=== PATIENT | female | born 1970 | race Caucasian/White ===

== ENCOUNTER 2019-03-08 18:03 | Emergency (ER) | payer BC ==
[2019-03-08] MEDS ORDERED: Sodium Chloride 0.9% 10 ML Syringe FLUSH PRN (18:23)
[2019-03-08] MEDS ORDERED: GI Cocktail Oral Solution 30 ML PO ONE (18:24)
[2019-03-08] MEDS ORDERED: diphenhydrAMINE 50 MG/ML SDV IVPUSH ONE (18:38)
[2019-03-08] MEDS ORDERED: Pantoprazole 40 MG Vial IVPUSH ONE (18:38)
[2019-03-08] MEDS ORDERED: Morphine 2 MG/ML Syringe IVPUSH ONE (18:38)
--- NOTE | 2019-03-08 19:03 | EDM.PDOC ---
ED HPI GENERAL MEDICAL PROBLEM - General Chief Complaint: Abdominal Pain Stated Complaint: abdominal pain Time Seen by Provider: 03/08/19 18:18 Source of Information: Reports: Patient History Limitations: Reports: No Limitations - History of Present Illness INITIAL COMMENTS - FREE TEXT/NARRATIVE: Patient arrives in the ER with complaints of abdominal pain and nausea since 12 today after eating lunch. 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 Has had history of ulcers, GERD, anxiety, depression. Denies history of UT, stroke. No family history of early from either. Denies fever, chills, chest pain, sob, no blood in urine or stool. Does endorse urinary frequency. No back pain. Surgical history includes appendectomy, cholecystectomy, and total hysterectomy. Last pouch dilitation was 2 weeks ago and states she is due for another. Onset: Today, Sudden Duration: Intermittent Quality: Reports: Sharp, Stabbing Severity: Moderate Improves with: Reports: None Worsens with: Reports: Movement Associated Symptoms: Reports: No Other Symptoms Middle Epigastric Pain Score (Numeric/FACES): 9 - Related Data Allergies Allergy/AdvReac Type Severity Reaction Status Date / Time fentanyl Allergy Hives Verified 03/08/19 18:25 Penicillins Allergy Cannot Verified 03/08/19 18:25 Remember prednisone Allergy Other Verified 03/08/19 18:25 Home Meds: Home Meds Carisoprodol [Soma] 250 mg PO TID PRN 03/08/19 [History] ClonazePAM [KlonoPIN] 0.5 mg PO BID PRN 03/08/19 [History] FLUoxetine HCl [Prozac] 60 mg PO DAILY 03/08/19 [History] Lactulose 10 gm PO BID PRN 03/08/19 [History] Misoprostol [Cytotec] 400 mcg PO BID 03/08/19 [History] Omeprazole Magnesium [Prilosec Otc] 40 mg PO BID 03/08/19 [History] Phenazopyridine [Pyridium] 100 mg PO Q4H PRN 03/08/19 [History] Propranolol [Inderal] 20 mg PO BID PRN 03/08/19 [History] SUMAtriptan [Sumatriptan] 20 mg NS DAILY PRN 03/08/19 [History] Sucralfate [Carafate] 1 gm PO QID 03/08/19 [History] buPROPion [Wellbutrin] 100 mg PO BID 03/08/19 [History] busPIRone [Buspar] 5 mg PO TID PRN 03/08/19 [History] lamoTRIgine [Lamictal XR] 300 mg PO DAILY 03/08/19 [History] traZODone HCl [Trazodone HCl] 100 mg PO BEDTIME 03/08/19 [History] ED ROS GENERAL - Review of Systems Review Of Systems: See Below Constitutional: Reports: No Symptoms HEENT: Reports: No Symptoms Respiratory: Reports: No Symptoms Cardiovascular: Reports: No Symptoms Endocrine: Reports: No Symptoms GI/Abdominal: Reports: Abdominal Pain, Nausea : Reports: Frequency Musculoskeletal: Reports: No Symptoms Skin: Reports: No Symptoms Neurological: Reports: No Symptoms Psychiatric: Reports: No Symptoms Hematologic/Lymphatic: Reports: No Symptoms Immunologic: Reports: No Symptoms ED EXAM, GI/ABD - Physical Exam Exam: See Below Exam Limited By: No Limitations General Appearance: Alert, WD/WN, No Apparent Distress Eyes: Bilateral: Normal Appearance, EOMI Ears: Normal TMs, Other (tubes bilaterally and are in correct position) Nose: Normal Inspection, Normal Mucosa, No Blood Throat/Mouth: Normal Inspection, Normal Lips, Normal Teeth, Normal Gums, Normal Oropharynx, Normal Voice, No Airway Compromise Head: Atraumatic, Normocephalic Neck: Normal Inspection, Supple, Non-Tender, Full Range of Motion Respiratory/Chest: No Respiratory Distress, Lungs Clear, Normal Breath Sounds, No Accessory Muscle Use, Chest Non-Tender Cardiovascular: Normal Peripheral Pulses, Regular Rate, Rhythm, No Edema, No Gallop, No JVD, No Murmur, No Rub GI/Abdominal Exam: Normal Bowel Sounds, No Organomegaly, No Mass, Tender. No: Distended Back Exam: Normal Inspection, Full Range of Motion, NT Extremities: Normal Inspection, Normal Range of Motion, Non-Tender, Normal Capillary Refill, No Pedal Edema Neurological: Alert, Oriented, CN II-XII Intact, Normal Cognition, Normal Gait, Normal Reflexes, No Motor/Sensory Deficits Psychiatric: Normal Affect, Normal Mood Skin Exam: Warm, Dry, Intact, Normal Color, No Rash Lymphatic: No Adenopathy Course - Vital Signs Last Recorded V/S: Last Vital Signs Temp 37.2 C 03/08/19 21:08 Pulse 99 05/05/19 21:08 Resp 16 03/08/19 21:08 BP 108/61 03/08/19 21:08 Pulse Ox 95 03/08/19 21:08 - Orders/Labs/Meds Labs: Laboratory Tests 03/08/19 03/08/19 03/08/19 Range/Units 18:28 18:47 18:47 WBC 9.0 (4.0-10.0) x10^3/uL RBC 3.50 L (4.00-5.50) x10^6/uL Hgb 11.1 L (12.0-16.0) g/dL Hct 33.4 (33.0-47.0) % MCV 95.4 H (78.0-93.0) fL MCH 31.7 (26.0-32.0) pg MCHC 33.2 (32.0-36.0) g/dL RDW Coeff of [place]cad[place] 13.6 (10.0-15.0) % Plt Count 368 (130-400) x10^3/uL Neut % (Auto) 59.6 (50.0-80.0) % Lymph % (Auto) 33.7 (25.0-50.0) % [place] % (Auto) 5.4 (2.0-11.0) % Eos % (Auto) 0.9 (0.0-4.0) % Baso % (Auto) 0.4 (0.2-1.2) % PT 9.0 L (10.0-12.8) SEC INR 0.8 L (2.0-3.5) Sodium (136-145) mmol/L Potassium (3.5-5.1) mmol/L Chloride (98-107) mmol/L Carbon Dioxide (21-32) mmol/L Anion Gap (10-20) mmol/L BUN (7-18) mg/dL Creatinine (0.55-1.02) mg/dL Est Cr Clr Drug Dosing mL/min Estimated GFR (MDRD) Glucose (74-106) mg/dL Calcium (8.5-10.1) mg/dL Corrected Calcium (8.5-10.1) mg/dL Total Bilirubin (0.2-1.0) mg/dL AST (15-37) U/L ALT (14-59) U/L Alkaline Phosphatase (46-116) U/L Creatine Kinase (26-192) U/L Troponin I (<=0.056) ng/mL C-Reactive Protein (<=0.9) mg/dL Total Protein (6.4-8.2) g/dL Albumin (3.4-5.0) g/dL Globulin Albumin/Globulin Ratio TSH, Ultra Sensitive (0.358-3.74) uIU/mL Urine Color Yellow (YELLOW) Urine Appearance Clear (CLEAR) Urine pH 6.0 (5.0-8.0) Ur Specific [place] 1.010 Urine Protein Negative (NEGATIVE) mg/dL Urine Glucose (UA) Negative (NEGATIVE) mg/dL Urine Ketones Negative (NEGATIVE) mg/dL Urine Occult Blood Negative (NEGATIVE) Urine Nitrite Negative (NEGATIVE) Urine Bilirubin Negative (NEGATIVE) Urine Urobilinogen 0.2 (0.2) EU/dL Ur Leukocyte Esterase Negative (NEGATIVE) Urine RBC 0-5 (NOT SEEN) /HPF Urine WBC 0-5 (NOT SEEN) /HPF Ur Squamous Epith Cells Few H (NEGATIVE) /HPF Urine Bacteria Not seen (NEGATIVE) /HPF Urine Mucus Not seen (NEGATIVE) /LPF 03/08/19 Range/Units 18:47 WBC (4.0-10.0) x10^3/uL RBC (4.00-5.50) x10^6/uL Hgb (12.0-16.0) g/dL Hct (33.0-47.0) % MCV (78.0-93.0) fL MCH (26.0-32.0) pg MCHC (32.0-36.0) g/dL RDW Coeff of Arcadio (10.0-15.0) % Plt Count (130-400) x10^3/uL Neut % (Auto) (50.0-80.0) % Lymph % (Auto) (25.0-50.0) % [place] % (Auto) (2.0-11.0) % Eos % (Auto) (0.0-4.0) % Baso % (Auto) (0.2-1.2) % PT (10.0-12.8) SEC INR (2.0-3.5) Sodium 140 (136-145) mmol/L Potassium 4.2 (3.5-5.1) mmol/L Chloride 106 (98-107) mmol/L Carbon Dioxide 26 (21-32) mmol/L Anion Gap 12.2 (10-20) mmol/L BUN 11 (7-18) mg/dL Creatinine 0.7 (0.55-1.02) mg/dL Est Cr Clr Drug Dosing 85.79 mL/min Estimated GFR (MDRD) > 60 Glucose 93 (74-106) mg/dL Calcium 8.0 L (8.5-10.1) mg/dL Corrected Calcium 9.04 (8.5-10.1) mg/dL Total Bilirubin 0.2 (0.2-1.0) mg/dL AST 18 (15-37) U/L ALT 23 (14-59) U/L Alkaline Phosphatase 64 (46-116) U/L Creatine Kinase 58 (26-192) U/L Troponin I < 0.017 (<=0.056) ng/mL C-Reactive Protein 0.5 (<=0.9) mg/dL Total Protein 5.8 L (6.4-8.2) g/dL Albumin 2.7 L (3.4-5.0) g/dL Globulin 3.1 Albumin/Globulin Ratio 0.87 TSH, Ultra Sensitive 2.808 (0.358-3.74) uIU/mL Urine Color (YELLOW) Urine Appearance (CLEAR) Urine pH (5.0-8.0) Ur Specific [place] Urine Protein (NEGATIVE) mg/dL Urine Glucose (UA) (NEGATIVE) mg/dL Urine Ketones (NEGATIVE) mg/dL Urine Occult Blood (NEGATIVE) Urine Nitrite (NEGATIVE) Urine Bilirubin (NEGATIVE) Urine Urobilinogen (0.2) EU/dL Ur Leukocyte Esterase (NEGATIVE) Urine RBC (NOT SEEN) /HPF Urine WBC (NOT SEEN) /HPF Ur Squamous Epith Cells (NEGATIVE) /HPF Urine Bacteria (NEGATIVE) /HPF Urine Mucus (NEGATIVE) /LPF Meds: Medications Discontinued Medications Generic Name Dose Route Start Last Admin Trade Name Freq PRN Reason Stop Dose Admin Al Hydroxide/Mg Hydroxide 30 ml 03/08/19 18:24 03/08/19 18:45 Gi Cocktail PO 03/08/19 18:25 30 ml ONETIME ONE Administration Diphenhydramine HCl 25 mg 03/08/19 18:38 03/08/19 18:58 Benadryl IVPUSH 03/08/19 18:39 25 mg ONETIME ONE Administration Hydromorphone HCl 1 mg 03/08/19 20:09 03/08/19 20:24 Dilaudid IVPUSH 03/08/19 20:10 1 mg ONETIME ONE Administration Lactated Ringer's 1,000 mls @ 999 mls/hr 03/08/19 20:09 03/08/19 20:26 Ringers, Lactated IV 03/08/19 21:09 999 mls/hr ONETIME ONE Administration Piperacillin Sod/Tazobactam 100 mls @ 200 mls/hr 03/08/19 20:10 03/08/19 20: 25 Sod 3.375 gm/ Sodium Chloride IV 03/08/19 20:39 200 mls/hr STAT ONE Administration Iopamidol 100 ml 03/08/19 19:22 03/08/19 19:25 Isovue-300 (61%) IVPUSH 03/08/19 19:23 100 ml ONETIME ONE Administration Morphine Sulfate 2 mg 03/08/19 18:38 03/08/19 19:00 Morphine IVPUSH 03/08/19 18:39 2 mg ONETIME ONE Administration Morphine Sulfate 4 mg 03/08/19 19:33 03/08/19 19:40 Morphine IVPUSH 03/08/19 19:34 4 mg ONETIME ONE Administration Ondansetron HCl 4 mg 03/08/19 19:44 03/08/19 19:52 Zofran IVPUSH 03/08/19 19:45 4 mg ONETIME ONE Administration Pantoprazole Sodium 40 mg 03/08/19 18:38 03/08/19 18:56 Protonix Iv IVPUSH 03/08/19 18:39 40 mg ONETIME ONE Administration Sodium Chloride 10 ml 03/08/19 18:23 Saline Flush FLUSH ASDIRECTED PRN Keep Vein Open - Radiology Interpretation Free Text/Narrative:: CT shows small bowel obstruction Departure - Departure Time of Disposition: 21:40 Disposition: DC/Tfer to Acute Hospital 02 Condition: Fair Clinical Impression: Small bowel obstruction - Discharge Information *PRESCRIPTION DRUG MONITORING PROGRAM REVIEWED*: Yes *COPY OF PRESCRIPTION DRUG MONITORING REPORT IN PATIENT JOE: Not Applicable Referrals: PCP,Not In Area [Primary Care Provider] - Forms: ED Department Discharge, Interfacility Transfer [facility] ED Communication - ED Communication Date/Time Date: 03/08/19 Time Called: 20:15 - Discussed Case With (1) Discussed Case With (1): Admitting Provider (Dr. Branch at [facility] was contacted and given report. Patient accepted. Await room number for transfer.)
[2019-03-08 19:22] LABS: CHLORIDE,CL 106 mmol/L (98-107); SODIUM,NA 140 mmol/L (136-145)
[2019-03-08] MEDS ORDERED: Iopamidol 612 MG/ML 100 ML Bottle IVPUSH ONE (19:22)
[2019-03-08 19:24] LABS: ANION GAP 12.2 mmol/L (10-20)
[2019-03-08] MEDS ORDERED: Morphine 4 MG/ML Syringe IVPUSH ONE (19:33)
[2019-03-08] MEDS ORDERED: Ondansetron 4 MG/2 ML SDV IVPUSH ONE (19:44)
--- NOTE | 2019-03-08 19:58 | CT ---
[id number] CT/CT Chest Abdomen Pelvis W IV EXAM: CHEST ABDOMEN AND PELVIS CT WITH CONTRAST INDICATION: Chest pain. COMPARISON: None. DISCUSSION: Previous gastric bypass. There are mild to moderately dilated fluid-filled small bowel loops in the left abdomen and right lower quadrant with multiple apparent transition points. The stomach, right colon and small bowel loops are origin is somewhat atypical fashion. These changes are present possibility of an internal hernia. There is minor edema within the right lower quadrant mesentery. No pneumatosis. The sigmoid colon, gallbladder and uterus are surgically absent. There is a probable hormonal ring within the vaginal cuff. Prominent colonic stool volume. Mild ectasia of the anterior and extrahepatic bile ducts likely relating to the patient's prior cholecystectomy. 10 mm right renal cyst. The pancreas, spleen, adrenal glands, and left kidney are normal in appearance. No free air free fluid. The osseous structures are unremarkable. IMPRESSION: 1. Small bowel obstruction with mild to moderate small bowel dilation. Constellation of findings raise the possibility of internal hernia and potential closed loop obstruction. Onel Saini MD 03/08/191955 Thank you for allowing us to participate in the care of your patient.
[2019-03-08] MEDS ORDERED: Lactated Ringers 1,000 ML IV ONE (20:09)
[2019-03-08] MEDS ORDERED: HYDROmorphone 1 MG/ML Syringe IVPUSH ONE (20:09)
[2019-03-08] MEDS ORDERED: Piperacillin/Tazobactam 3.375 GM in Sodium Chloride 0.9% 100 ML IV ONE (20:10)
== END 2019-03-08 21:40 | disposition short-term general hospital (02) ==
LOC: VM.ED 18:03
DX: K56.609 Unspecified intestinal obstruction, unspecified as to partial versus complete obstruction (principal); Z79.899 Other long term (current) drug therapy; Z88.0 Allergy status to penicillin; Z88.8 Allergy status to other drugs, medicaments and biological substances
CPT/HCPCS: 74177; 80053; 81001; 82550; 84443; 84484; 85025; 85610; 86140; 93005; 96361; 96365; 96375; 96376; 99285; A9270; C9113; J1170; J1200; J2270; J2405; J2543; J7050; J7120; Q9967

== ENCOUNTER 2019-03-26 21:37 | Emergency (ER) | payer BC ==
[2019-03-26] MEDS ORDERED: Sodium Chloride 0.9% 10 ML Syringe FLUSH PRN (22:06)
[2019-03-26] MEDS ORDERED: Ondansetron 4 MG/2 ML SDV IVPUSH ONE (22:13)
[2019-03-26] MEDS ORDERED: Morphine 2 MG/ML Syringe IVPUSH ONE ×2 (22:13→22:57)
--- NOTE | 2019-03-26 22:26 | EDM.PDOC ---
ED HPI GENERAL MEDICAL PROBLEM - General Chief Complaint: Abdominal Pain Stated Complaint: nausea, abdominal pain Time Seen by Provider: 03/26/19 21:58 Source of Information: Reports: Patient History Limitations: Reports: No Limitations - History of Present Illness INITIAL COMMENTS - FREE TEXT/NARRATIVE: Patient presents with complaints of nausea, vomiting over the last few days. She also complains of fever and chills as well as abdominal pain radiating to both sides of her back/flank. States she did observe blood in her urine earlier today. Has been able to keep protein drinks down but did throw up cottage cheese after a couple of bites. She states she had a bowel movement this morning that she describes as regular sized. She denies headache, neck pain, chest pain, SOB. No burning in her chest. States pain feels sharp and stabbing as well as cramping. She was seen here 03/08/19 and diagnosed with an SBO. Transfer to [facility] for treatment due to history of gastric bypass and bowel resection surgery. Small bowel follow through performed which was normal. Other surgical history includes cholecystectomy, appendectomy, total hysterectomy. Onset: Gradual Duration: Intermittent Location: Reports: Abdomen Quality: Reports: Ache, Stabbing Severity: Moderate Worsens with: Reports: Eating Associated Symptoms: Reports: Fever/Chills Abdominal Pain Score (Numeric/FACES): 8 - Related Data Allergies Allergy/AdvReac Type Severity Reaction Status Date / Time fentanyl Allergy Hives Verified 03/26/19 21:43 Penicillins Allergy Cannot Verified 03/26/19 21:43 Remember prednisone Allergy Other Verified 03/26/19 21:43 Home Meds: Home Meds Carisoprodol [Soma] 250 mg PO TID PRN 03/08/19 [History] ClonazePAM [KlonoPIN] 0.5 mg PO BID PRN 03/08/19 [History] FLUoxetine HCl [Prozac] 60 mg PO DAILY 03/08/19 [History] Lactulose 10 gm PO BID PRN 03/08/19 [History] Misoprostol [Cytotec] 400 mcg PO BID 03/08/19 [History] Omeprazole Magnesium [Prilosec Otc] 40 mg PO BID 03/08/19 [History] Phenazopyridine [Pyridium] 100 mg PO Q4H PRN 03/08/19 [History] Propranolol [Inderal] 20 mg PO BID PRN 03/08/19 [History] SUMAtriptan [Sumatriptan] 20 mg NS DAILY PRN 03/08/19 [History] Sucralfate [Carafate] 1 gm PO QID 03/08/19 [History] buPROPion [Wellbutrin] 100 mg PO BID 03/08/19 [History] busPIRone [Buspar] 5 mg PO TID PRN 03/08/19 [History] lamoTRIgine [Lamictal XR] 300 mg PO DAILY 03/08/19 [History] traZODone HCl [Trazodone HCl] 100 mg PO BEDTIME 03/08/19 [History] Past Medical History Gastrointestinal History: Reports: GERD, Other (See Below) Other Gastrointestinal History: ulcer Psychiatric History: Reports: Anxiety, Depression - Past Surgical History GI Surgical History: Reports: Appendectomy, Bariatric Procedure, Cholecystectomy Female Surgical History: Reports: Hysterectomy Social & Family History - Tobacco Use Smoking Status *Q: Never Smoker ED ROS GENERAL - Review of Systems Review Of Systems: See Below Constitutional: Reports: Fever, Chills HEENT: Reports: No Symptoms Respiratory: Reports: No Symptoms Cardiovascular: Reports: No Symptoms Endocrine: Reports: No Symptoms GI/Abdominal: Reports: Abdominal Pain, Nausea, Vomiting : Reports: Hematuria Musculoskeletal: Reports: Back Pain Skin: Reports: No Symptoms Neurological: Reports: No Symptoms Psychiatric: Reports: No Symptoms Hematologic/Lymphatic: Reports: No Symptoms Immunologic: Reports: No Symptoms ED EXAM, GI/ABD - Physical Exam Exam: See Below Exam Limited By: No Limitations General Appearance: Alert, WD/WN, No Apparent Distress Eyes: Bilateral: Normal Appearance, EOMI Ears: Normal TMs Nose: Normal Inspection, Normal Mucosa, No Blood Throat/Mouth: Normal Inspection, Normal Lips, Normal Teeth, Normal Gums, Normal Oropharynx, Normal Voice, No Airway Compromise Head: Atraumatic, Normocephalic Neck: Normal Inspection, Supple, Non-Tender, Full Range of Motion Respiratory/Chest: No Respiratory Distress, Lungs Clear, Normal Breath Sounds, No Accessory Muscle Use, Chest Non-Tender Cardiovascular: Normal Peripheral Pulses, Regular Rate, Rhythm, No Edema, No Gallop, No JVD, No Murmur, No Rub GI/Abdominal Exam: Normal Bowel Sounds, Soft, No Organomegaly, No Distention, Tender Back Exam: CVA Tenderness (L), CVA Tenderness (R) Extremities: Normal Inspection, Normal Range of Motion, Non-Tender, Normal Capillary Refill, No Pedal Edema Neurological: Alert, Oriented, CN II-XII Intact, Normal Cognition, Normal Gait, Normal Reflexes, No Motor/Sensory Deficits Psychiatric: Normal Affect, Depressed Mood Skin Exam: Warm, Dry, Intact, Normal Color, No Rash Lymphatic: No Adenopathy Course - Vital Signs Last Recorded V/S: Last Vital Signs Temp 37.6 C 03/26/19 21:45 Pulse 77 03/26/19 21:45 Resp 18 03/26/19 21:45 BP 110/53 L 03/26/19 21:45 Pulse Ox 96 03/26/19 21:45 - Orders/Labs/Meds Orders: Active Orders 24 hr Category Date Time Status Abdomen Pelvis w Cont [CT] Stat Exams 03/26/19 22:06 Ordered CBC WITH AUTO DIFF [HEME] Stat Lab 03/26/19 22:06 Ordered COMPREHENSIVE METABOLIC PN,CMP [CHEM] Stat Lab 03/26/19 22:06 Ordered MAGNESIUM [CHEM] Stat Lab 03/26/19 22:06 Ordered UA W/MICROSCOPIC [URIN] Stat Lab 03/26/19 22:13 Ordered Sodium Chloride 0.9% [Saline Flush] Med 03/26/19 22:06 Ordered 10 ml FLUSH ASDIRECTED PRN Saline Lock Insert [OM.PC] Routine Oth 03/26/19 22:06 Ordered Medication Orders Sodium Chloride (Saline Flush) 10 ml FLUSH ASDIRECTED PRN PRN Reason: Keep Vein Open Meds: Medications Generic Name Dose Route Start Last Admin Trade Name Freq PRN Reason Stop Dose Admin Sodium Chloride 10 ml 03/26/19 22:06 Saline Flush FLUSH ASDIRECTED PRN Keep Vein Open Discontinued Medications Generic Name Dose Route Start Last Admin Trade Name Freq PRN Reason Stop Dose Admin Morphine Sulfate 2 mg 03/26/19 22:13 Morphine IVPUSH 03/26/19 22:14 ONETIME ONE Ondansetron HCl 4 mg 03/26/19 22:13 Zofran IVPUSH 03/26/19 22:14 ONETIME ONE - Radiology Interpretation Free Text/Narrative:: CT negative for acute abdominal process Departure - Departure Time of Disposition: 23:29 Disposition: Home, Self-Care 01 Condition: Good Clinical Impression: Constipation, Pyelonephritis - Discharge Information *PRESCRIPTION DRUG MONITORING PROGRAM REVIEWED*: No *COPY OF PRESCRIPTION DRUG MONITORING REPORT IN PATIENT JOE: No Instructions: Pyelonephritis, Adult, [id number], Constipation, Adult, Easy-to -Read, Ciprofloxacin tablets, Probiotics Referrals: PCP,None [Ordering Only Provider] - Additional Instructions: Plan 1. Stay well hydrated by drinking 1-2 liters of fluid daily to prevent constipation and flush your kidneys 2. Take cipro 500 mg tablets twice a day for 7 days 3. Take pain medications every 4 hours as needed for pain. These can also interact with your other medications. Do not drive while taking them 4. Take the cipro until it is finished, even if feeling better. Only stop if you have signs of allergy including rash, difficulty breathing or facial swelling 5. Take a probiotic or eat 1-2 servings of yogurt for the next several weeks to prevent bacterial diarrhea from antibiotic use 6. Please contact us if you have any questions or concerns 7. Schedule a follow up with your primary doctor to get to the bottom of your recurrent abdominal pain episodes. CT was negative for bowel obstruction - Problem List & Annotations (1) Constipation SNOMED Code(s): 00381405 Code(s): K59.00 - CONSTIPATION, UNSPECIFIED Status: Acute Priority: Medium Current Visit: Yes Qualifiers: Constipation type: drug induced constipation Qualified Code(s): K59.03 - Drug induced constipation (2) Pyelonephritis SNOMED Code(s): 14195046 Code(s): N12 - TUBULO-INTERSTITIAL NEPHRITIS, NOT SPCF ACUTE OR CHRONIC Status: Acute Current Visit: Yes - Problem List Review Problem List Initiated/Reviewed/Updated: Yes - My Orders Last 24 Hours: My Active Orders 03/26/19 22:06 Abdomen Pelvis w Cont [CT] Stat CBC WITH AUTO DIFF [HEME] Stat COMPREHENSIVE METABOLIC PN,CMP [CHEM] Stat MAGNESIUM [CHEM] Stat Sodium Chloride 0.9% [Saline Flush] 10 ml FLUSH ASDIRECTED PRN Saline Lock Insert [OM.PC] Routine 03/26/19 22:13 UA W/MICROSCOPIC [URIN] Stat - Assessment/Plan Last 24 Hours: My Active Orders 03/26/19 22:06 Abdomen Pelvis w Cont [CT] Stat CBC WITH AUTO DIFF [HEME] Stat COMPREHENSIVE METABOLIC PN,CMP [CHEM] Stat MAGNESIUM [CHEM] Stat Sodium Chloride 0.9% [Saline Flush] 10 ml FLUSH ASDIRECTED PRN Saline Lock Insert [OM.PC] Routine 03/26/19 22:13 UA W/MICROSCOPIC [URIN] Stat Assessment:: constipation pyelonephritis Plan: Plan 1. Stay well hydrated by drinking 1-2 liters of fluid daily to prevent constipation and flush your kidneys 2. Take cipro 500 mg tablets twice a day for 7 days 3. Take pain medications every 4 hours as needed for pain. These can also interact with your other medications. Do not drive while taking them 4. Take the cipro until it is finished, even if feeling better. Only stop if you have signs of allergy including rash, difficulty breathing or facial swelling 5. Take a probiotic or eat 1-2 servings of yogurt for the next several weeks to prevent bacterial diarrhea from antibiotic use 6. Please contact us if you have any questions or concerns 7. Schedule a follow up with your primary doctor to get to the bottom of your recurrent abdominal pain episodes. CT was negative for bowel obstruction
[2019-03-26] MEDS ORDERED: Iopamidol 612 MG/ML 100 ML Bottle IVPUSH ONE (22:28)
[2019-03-26] MEDS ORDERED: diphenhydrAMINE 50 MG/ML SDV IVPUSH ONE (22:31)
[2019-03-26] MEDS ORDERED: Metoclopramide 10 MG/2 ML SDV IVPUSH ONE (22:44)
[2019-03-26 22:54] LABS: ANION GAP 14.1 mmol/L (10-20); CHLORIDE,CL 106 mmol/L (98-107); SODIUM,NA 140 mmol/L (136-145)
[2019-03-26] MEDS ORDERED: cefTRIAXone 2 GM Vial IVPUSH ONE (22:59)
[2019-03-26] MEDS ORDERED: Take Home: Acetaminophen/HYDROcodone 325-10 MG, 5 Tab Pack PO ONE (23:19)
--- NOTE | 2019-03-27 07:41 | CT ---
[id number] CT/CT Abdomen Pelvis W IV EXAM: CT Abdomen Pelvis W IV CLINICAL DATA: ABDOMINAL PAIN. HISTORY OF BOWEL OBSTRUCTION COMPARISON: CORRELATION IS MADE WITH THE EXAM OF MARCH 08, 2019. FINDINGS: There is moderate small bowel distention. There is no free air or free fluid. There is no pneumatosis intestinalis. Surgical changes are seen. The uterus and ovaries are not seen. The appendix and gallbladder are not seen. Surgical changes regarding the stomach are identified. The liver and spleen, adrenals, aorta, pancreas, kidneys are unremarkable. Tiny renal cysts are seen. The pelvis shows no mass or adenopathy. The mesenteric vessels demonstrate normal enhancement. There is no portal venous air or pneumatosis intestinalis. IMPRESSION: NONSPECIFIC MILD/MODERATE SMALL BOWEL DISTENTION. Fernando Stephenson MD 03/27/19 0740 Thank you for allowing us to participate in the care of your patient.
== END 2019-03-26 23:35 | disposition home or self-care (01) ==
LOC: VM.ED 21:37
DX: K59.00 Constipation, unspecified (principal); N12 Tubulo-interstitial nephritis, not specified as acute or chronic; K21.9 Gastro-esophageal reflux disease without esophagitis; F41.9 Anxiety disorder, unspecified; F32.9 Major depressive disorder, single episode, unspecified; Z79.899 Other long term (current) drug therapy; Z88.0 Allergy status to penicillin; Z88.8 Allergy status to other drugs, medicaments and biological substances
CPT/HCPCS: 36415; 74177; 80053; 81001; 83735; 85025; 87086; 96374; 96375; 96376; 99284-25; A9270-GY; J0696; J1200; J2270; J2405; J2765; Q9967

== ENCOUNTER 2019-04-23 18:44 | Emergency (ER) | payer BC ==
[2019-04-23] MEDS ORDERED: Sodium Chloride 0.9% 10 ML Syringe FLUSH PRN (18:48)
[2019-04-23] MEDS ORDERED: Sodium Chloride 0.9% 1,000 ML IV ONE ×2 (18:48→21:10)
[2019-04-23] MEDS ORDERED: diphenhydrAMINE 50 MG/ML SDV IVPUSH ONE (18:48)
[2019-04-23] MEDS ORDERED: Ondansetron 4 MG/2 ML SDV IVPUSH ONE (18:48)
[2019-04-23] MEDS ORDERED: GI Cocktail Oral Solution 30 ML PO ONE (19:13)
[2019-04-23] MEDS ORDERED: Iopamidol 612 MG/ML 100 ML Bottle IVPUSH ONE (19:20)
[2019-04-23 19:47] LABS: BUPRENORPHINE,URINE NEGATIVE (NEGATIVE)
[2019-04-23 19:48] LABS: MARIJUANA,URINE NEGATIVE (NEGATIVE); METHYLENEDIOXYMETHAMP,UR NEGATIVE (NEGATIVE); PHENCYCLIDINE,URINE NEGATIVE (NEGATIVE)
[2019-04-23 19:50] LABS: CHLORIDE,CL 103 mmol/L (98-107); SODIUM,NA 141 mmol/L (136-145)
[2019-04-23 19:51] LABS: ANION GAP 12.3 mmol/L (10-20)
[2019-04-23] MEDS ORDERED: cefTRIAXone 2 GM Vial IVPUSH ONE (20:15)
[2019-04-23] MEDS ORDERED: Ketorolac 15 MG/ML SDV IVPUSH ONE (20:15)
[2019-04-23] MEDS ORDERED: Metoclopramide 10 MG/2 ML SDV IVPUSH ONE (20:27)
[2019-04-23] MEDS ORDERED: HYDROmorphone 1 MG/ML Syringe IVPUSH ONE (20:27)
--- NOTE | 2019-04-23 20:37 | EDM.PDOC ---
ED HPI GENERAL MEDICAL PROBLEM - General Chief Complaint: Abdominal Pain Stated Complaint: Abdominal Pain Time Seen by Provider: 04/23/19 18:45 Source of Information: Reports: Patient History Limitations: Reports: No Limitations - History of Present Illness INITIAL COMMENTS - FREE TEXT/NARRATIVE: Patient presents with complaints of abdominal pain, nausea, diarrhea. Abdominal pain wraps around to the back bilaterally. She has been here multiple times for similar symptoms. History of gastric bypass, cholecystectomy , appendectomy. Has had to have multiple dilitations of the pouch. History of ulcers as well. Does follow with gastroenterology and has appointment scheduled for this coming Saturday. Denies head or neck ache, no vomiting. Onset: Today, Sudden Duration: Intermittent Location: Reports: Abdomen Quality: Reports: Ache, Sharp Severity: Moderate Associated Symptoms: Reports: Nausea/Vomiting - Related Data Allergies Allergy/AdvReac Type Severity Reaction Status Date / Time fentanyl Allergy Hives Verified 03/26/19 21:43 Penicillins Allergy Cannot Verified 03/26/19 21:43 Remember prednisone Allergy Other Verified 03/26/19 21:43 Home Meds: Home Meds Carisoprodol [Soma] 250 mg PO TID PRN 03/08/19 [History] ClonazePAM [KlonoPIN] 0.5 mg PO BID PRN 03/08/19 [History] FLUoxetine HCl [Prozac] 60 mg PO DAILY 03/08/19 [History] Lactulose 10 gm PO BID PRN 03/08/19 [History] Misoprostol [Cytotec] 400 mcg PO BID 03/08/19 [History] Omeprazole Magnesium [Prilosec Otc] 40 mg PO BID 03/08/19 [History] Phenazopyridine [Pyridium] 100 mg PO Q4H PRN 03/08/19 [History] Propranolol [Inderal] 20 mg PO BID PRN 03/08/19 [History] SUMAtriptan [Sumatriptan] 20 mg NS DAILY PRN 03/08/19 [History] Sucralfate [Carafate] 1 gm PO QID 03/08/19 [History] buPROPion [Wellbutrin] 100 mg PO TID 03/08/19 [History] busPIRone [Buspar] 5 mg PO TID PRN 03/08/19 [History] lamoTRIgine [Lamictal XR] 300 mg PO DAILY 03/08/19 [History] traZODone HCl [Trazodone HCl] 100 mg PO BEDTIME 03/08/19 [History] Past Medical History Gastrointestinal History: Reports: GERD, Other (See Below) Other Gastrointestinal History: ulcer Psychiatric History: Reports: Anxiety, Depression - Past Surgical History GI Surgical History: Reports: Appendectomy, Bariatric Procedure, Cholecystectomy Female Surgical History: Reports: Hysterectomy ED ROS GENERAL - Review of Systems Review Of Systems: See Below Constitutional: Reports: No Symptoms HEENT: Reports: No Symptoms Respiratory: Reports: No Symptoms Cardiovascular: Reports: No Symptoms Endocrine: Reports: No Symptoms GI/Abdominal: Reports: Abdominal Pain, Diarrhea, Nausea : Reports: No Symptoms Musculoskeletal: Reports: No Symptoms Skin: Reports: No Symptoms Neurological: Reports: No Symptoms Psychiatric: Reports: No Symptoms Hematologic/Lymphatic: Reports: No Symptoms Immunologic: Reports: No Symptoms ED EXAM, GI/ABD - Physical Exam Exam: See Below Exam Limited By: No Limitations General Appearance: Alert, WD/WN, No Apparent Distress Eyes: Bilateral: Normal Appearance, EOMI Ears: Normal TMs Nose: Normal Inspection, Normal Mucosa, No Blood Throat/Mouth: Normal Inspection, Normal Lips, Normal Teeth, Normal Gums, Normal Oropharynx, Normal Voice, No Airway Compromise Head: Atraumatic, Normocephalic Neck: Normal Inspection, Supple, Non-Tender, Full Range of Motion Respiratory/Chest: No Respiratory Distress, Lungs Clear, Normal Breath Sounds, No Accessory Muscle Use, Chest Non-Tender Cardiovascular: Normal Peripheral Pulses, Regular Rate, Rhythm, No Edema, No Gallop, No JVD, No Murmur, No Rub GI/Abdominal Exam: Normal Bowel Sounds, Soft, Non-Tender, No Organomegaly, No Distention, No Abnormal Bruit, No Mass, Pelvis Stable Back Exam: Normal Inspection, Full Range of Motion, NT Extremities: Normal Inspection, Normal Range of Motion, Non-Tender, Normal Capillary Refill, No Pedal Edema Neurological: Alert, Oriented, CN II-XII Intact, Normal Cognition, Normal Gait, Normal Reflexes, No Motor/Sensory Deficits Psychiatric: Normal Affect, Normal Mood Skin Exam: Warm, Dry, Intact, Normal Color, No Rash Lymphatic: No Adenopathy Course - Orders/Labs/Meds Orders: Active Orders 24 hr Category Date Time Status Abdomen Pelvis w Cont [CT] Stat Exams 04/23/19 19:11 Taken CULTURE URINE [RM] Stat Lab 04/23/19 20:09 Ordered Sodium Chloride 0.9% [Saline Flush] Med 04/23/19 18:48 Active 10 ml FLUSH ASDIRECTED PRN Saline Lock Insert [OM.PC] Routine Oth 04/23/19 18:48 Ordered Medication Orders Sodium Chloride (Saline Flush) 10 ml FLUSH ASDIRECTED PRN PRN Reason: Keep Vein Open Last Admin: 04/23/19 19:08 Dose: 10 ml Labs: Laboratory Tests 04/23/19 04/23/19 04/23/19 Range/Units 19:05 19:05 19:05 WBC 8.9 (4.0-10.0) x10^3/uL RBC 3.54 L (4.00-5.50) x10^6/uL Hgb 10.7 L (12.0-16.0) g/dL Hct 33.0 (33.0-47.0) % MCV 93.2 H D (78.0-93.0) fL MCH 30.2 (26.0-32.0) pg MCHC 32.4 (32.0-36.0) g/dL RDW Coeff of Arcadio 12.0 (10.0-15.0) % Plt Count 353 (130-400) x10^3/uL Neut % (Auto) 65.8 (50.0-80.0) % Lymph % (Auto) 25.9 (25.0-50.0) % Da[place]hin % (Auto) 7.5 (2.0-11.0) % Eos % (Auto) 0.4 (0.0-4.0) % Baso % (Auto) 0.4 (0.2-1.2) % Sodium 141 (136-145) mmol/L Potassium 3.3 L (3.5-5.1) mmol/L Chloride 103 (98-107) mmol/L Carbon Dioxide 29 (21-32) mmol/L Anion Gap 12.3 (10-20) mmol/L BUN 6 L (7-18) mg/dL Creatinine 0.7 (0.55-1.02) mg/dL Est Cr Clr Drug Dosing TNP Estimated GFR (MDRD) > 60 Glucose 94 (74-106) mg/dL Lactic Acid (0.4-2.0) mmol/L Calcium 9.0 (8.5-10.1) mg/dL Corrected Calcium 9.48 (8.5-10.1) mg/dL Total Bilirubin 0.3 (0.2-1.0) mg/dL AST 10 L (15-37) U/L ALT 16 (14-59) U/L Alkaline Phosphatase 111 (46-116) U/L Troponin I < 0.017 (<=0.056) ng/mL Total Protein 7.7 (6.4-8.2) g/dL Albumin 3.4 (3.4-5.0) g/dL Globulin 4.3 Albumin/Globulin Ratio 0.79 Amylase 36 (25-115) U/L Urine Color (YELLOW) Urine Appearance (CLEAR) Urine pH (5.0-8.0) Ur Specific Russell Urine Protein (NEGATIVE) mg/dL Urine Glucose (UA) (NEGATIVE) mg/dL Urine Ketones (NEGATIVE) mg/dL Urine Occult Blood (NEGATIVE) Urine Nitrite (NEGATIVE) Urine Bilirubin (NEGATIVE) Urine Urobilinogen (0.2) EU/dL Ur Leukocyte Esterase (NEGATIVE) Urine RBC (NOT SEEN) /HPF Urine WBC (NOT SEEN) /HPF Ur Squamous Epith Cells (NEGATIVE) /HPF Amorphous Sediment Urine Bacteria (NEGATIVE) /HPF Urine Mucus (NEGATIVE) /LPF Urine Opiates Screen (NEGATIVE) Ur Buprenorphine Scrn (NEGATIVE) Ur Oxycodone Screen (NEGATIVE) Ur EDDP (Meth Metab) (NEGATIVE) Urine Methadone Screen (NEGATIVE) Ur Barbituates Screen (NEGATIVE) Ur Tricyclics Screen (NEGATIVE) Ur Phencyclidine Scrn (NEGATIVE) Ur Amphetamines Screen (NEGATIVE) U Methamphetamines Scrn (NEGATIVE) Urine MDMA Screen (NEGATIVE) U Benzodiazepines Scrn (NEGATIVE) Urine Cocaine Screen (NEGATIVE) U Marijuana (THC) Screen (NEGATIVE) 04/23/19 04/23/19 04/23/19 Range/Units 19:05 19:25 19:25 WBC (4.0-10.0) x10^3/uL RBC (4.00-5.50) x10^6/uL Hgb (12.0-16.0) g/dL Hct (33.0-47.0) % MCV (78.0-93.0) fL MCH (26.0-32.0) pg MCHC (32.0-36.0) g/dL RDW Coeff of Arcadio (10.0-15.0) % Plt Count (130-400) x10^3/uL Neut % (Auto) (50.0-80.0) % Lymph % (Auto) (25.0-50.0) % Da[place]hin % (Auto) (2.0-11.0) % Eos % (Auto) (0.0-4.0) % Baso % (Auto) (0.2-1.2) % Sodium (136-145) mmol/L Potassium (3.5-5.1) mmol/L Chloride (98-107) mmol/L Carbon Dioxide (21-32) mmol/L Anion Gap (10-20) mmol/L BUN (7-18) mg/dL Creatinine (0.55-1.02) mg/dL Est Cr Clr Drug Dosing Estimated GFR (MDRD) Glucose (74-106) mg/dL Lactic Acid 1.3 (0.4-2.0) mmol/L Calcium (8.5-10.1) mg/dL Corrected Calcium (8.5-10.1) mg/dL Total Bilirubin (0.2-1.0) mg/dL AST (15-37) U/L ALT (14-59) U/L Alkaline Phosphatase (46-116) U/L Troponin I (<=0.056) ng/mL Total Protein (6.4-8.2) g/dL Albumin (3.4-5.0) g/dL Globulin Albumin/Globulin Ratio Amylase (25-115) U/L Urine Color Dark yellow H (YELLOW) Urine Appearance Turbid H (CLEAR) Urine pH 6.0 (5.0-8.0) Ur Specific Russell >=1.030 Urine Protein Trace H (NEGATIVE) mg/dL Urine Glucose (UA) Negative (NEGATIVE) mg/dL Urine Ketones Trace H (NEGATIVE) mg/dL Urine Occult Blood Negative (NEGATIVE) Urine Nitrite Negative (NEGATIVE) Urine Bilirubin Small H (NEGATIVE) Urine Urobilinogen 0.2 (0.2) EU/dL Ur Leukocyte Esterase Small H (NEGATIVE) Urine RBC 0-5 (NOT SEEN) /HPF Urine WBC 40-50 H (NOT SEEN) /HPF Ur Squamous Epith Cells Many H (NEGATIVE) /HPF Amorphous Sediment Few Urine Bacteria Moderate H (NEGATIVE) /HPF Urine Mucus Many H (NEGATIVE) /LPF Urine Opiates Screen Negative (NEGATIVE) Ur Buprenorphine Scrn Negative (NEGATIVE) Ur Oxycodone Screen Negative (NEGATIVE) Ur EDDP (Meth Metab) Negative (NEGATIVE) Urine Methadone Screen Negative (NEGATIVE) Ur Barbituates Screen Negative (NEGATIVE) Ur Tricyclics Screen Negative (NEGATIVE) Ur Phencyclidine Scrn Negative (NEGATIVE) Ur Amphetamines Screen Negative (NEGATIVE) U Methamphetamines Scrn Negative (NEGATIVE) Urine MDMA Screen Negative (NEGATIVE) U Benzodiazepines Scrn Negative (NEGATIVE) Urine Cocaine Screen Negative (NEGATIVE) U Marijuana (THC) Screen Negative (NEGATIVE) Meds: Medications Generic Name Dose Route Start Last Admin Trade Name Freq PRN Reason Stop Dose Admin Sodium Chloride 10 ml 04/23/19 18:48 04/23/19 19:08 Saline Flush FLUSH 10 ml ASDIRECTED PRN Administration Keep Vein Open Discontinued Medications Generic Name Dose Route Start Last Admin Trade Name Freq PRN Reason Stop Dose Admin Al Hydroxide/Mg Hydroxide 30 ml 04/23/19 19:13 04/23/19 20:04 Gi Cocktail PO 04/23/19 19:14 30 ml ONETIME ONE Administration Diphenhydramine HCl 25 mg 04/23/19 18:48 04/23/19 20:08 Benadryl IVPUSH 04/23/19 18:49 25 mg ONETIME ONE Administration Sodium Chloride 1,000 mls @ 999 mls/hr 04/23/19 18:48 04/23/19 19:08 Normal Saline IV 04/23/19 19:48 999 mls/hr ONETIME ONE Administration Iopamidol 100 ml 04/23/19 19:20 Isovue-300 (61%) IVPUSH 04/23/19 19:21 ONETIME ONE Ondansetron HCl 4 mg 04/23/19 18:48 04/23/19 20:10 Zofran IVPUSH 04/23/19 18:49 4 mg ONETIME ONE Administration - Radiology Interpretation Free Text/Narrative:: CT abdomen shows possible marginal ulcer, possible mild ileus Departure - Departure Time of Disposition: 21:55 Disposition: Home, Self-Care 01 Condition: Fair Clinical Impression: Ulcer, Ileus, UTI (urinary tract infection) - Discharge Information *PRESCRIPTION DRUG MONITORING PROGRAM REVIEWED*: No *COPY OF PRESCRIPTION DRUG MONITORING REPORT IN PATIENT JOE: No Instructions: Ileus, Urinary Tract Infection, Adult Referrals: Tess Ray MD [Primary Care Provider] - Additional Instructions: Plan 1. Follow up with your primary provider to determine whether an EGD would be appropriate 2. Your primary needs to be the provider to prescribe any fpc pain medications. I will give you a take home packet today. I will likely not provide pain medication in the future for similar episodes. 3. You have another urinary tract infection. Please take macrobid 100 mg twice a day for 5 days 4. Drink 60-80 ounces of water daily 5. Make sure to be as active as you can with as much walking as you can tolerate to help keep your bowels moving 6. Please call if you have any additional questions or concerns - Problem List & Annotations (1) Ileus SNOMED Code(s): 542394235 Code(s): K56.7 - ILEUS, UNSPECIFIED Status: Acute Priority: Low Current Visit: Yes (2) UTI (urinary tract infection) SNOMED Code(s): 08888518 Code(s): N39.0 - URINARY TRACT INFECTION, SITE NOT SPECIFIED Status: Acute Priority: Low Current Visit: Yes Qualifiers: Urinary tract infection type: acute cystitis Hematuria presence: without hematuria Qualified Code(s): N30.00 - Acute cystitis without hematuria (3) Ulcer SNOMED Code(s): 203265971 Code(s): RAZ2360 - Status: Acute Priority: Low Current Visit: Yes - Problem List Review Problem List Initiated/Reviewed/Updated: Yes - My Orders Last 24 Hours: My Active Orders 04/23/19 18:48 Sodium Chloride 0.9% [Saline Flush] 10 ml FLUSH ASDIRECTED PRN Saline Lock Insert [OM.PC] Routine 04/23/19 19:11 Abdomen Pelvis w Cont [CT] Stat 04/23/19 20:09 CULTURE URINE [RM] Stat - Assessment/Plan Last 24 Hours: My Active Orders 04/23/19 18:48 Sodium Chloride 0.9% [Saline Flush] 10 ml FLUSH ASDIRECTED PRN Saline Lock Insert [OM.PC] Routine 04/23/19 19:11 Abdomen Pelvis w Cont [CT] Stat 04/23/19 20:09 CULTURE URINE [RM] Stat Assessment:: UTI ileus ulcer Plan: Plan 1. Follow up with your primary provider to determine whether an EGD would be appropriate 2. 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 I will give you a take home packet today. I will likely not provide pain medication in the future for similar episodes. 3. You have another urinary tract infection. Please take macrobid 100 mg twice a day for 5 days 4. Drink 60-80 ounces of water daily 5. Make sure to be as active as you can with as much walking as you can tolerate to help keep your bowels moving 6. Please call if you have any additional questions or concerns
[2019-04-23] MEDS ORDERED: Take Home: Acetaminophen/HYDROcodone 325-10 MG, 5 Tab Pack PO ONE (21:46)
[2019-04-23] MEDS ORDERED: Take Home: Ondansetron 4 MG Tab.DIS, 2 Tab Pack PO ONE (21:46)
--- NOTE | 2019-04-24 10:44 | CT ---
[id number] CT/CT Abdomen Pelvis W IV EXAM: ABDOMEN AND PELVIS CT WITH CONTRAST INDICATION: Abdominal pain. COMPARISON: March 26, 2018. DISCUSSION: There are surgical changes of gastric bypass. Situated between the suture lines for the excluded stomach and a gastrojejunal anastomosis there is a collection of gas and fluid extending outward from the expected luminal contour suggesting a marginal ulcer with surrounding inflammatory changes. The exact origin from the bowel is not clear given the close proximity to both limbs of the stomach and the jejunal outlet. This can be well seen on image 30 of series 2, image 32 of series 3, and image 37 of series 4. Fluid filled mildly dilated small and large bowel loops are nonspecific, but may relate to mild ileus. The uterus and gallbladder are surgically absent. Possible prior sigmoid resection. The colon is redundant and fluid-filled. The appendix cannot be identified with certainty. Tiny cysts lower pole right kidney. Presumed hormonal ring within the vagina. The left kidney, spleen, pancreas, adrenal glands and urinary bladder are normal in appearance. The osseous structures are unremarkable. IMPRESSION: 1. Small gas and fluid collection adjacent to the gastric staple line and gastrojejunal anastomosis of the gastric bypass. Changes are suspicious for a marginal ulcer and there are mild surrounding inflammatory changes. No drainable collection or remote free air is identified. 2. Fluid-filled mildly distended small and large bowel loops may relate to mild ileus. Onel Saini MD 04/24/19 1034 Thank you for allowing us to participate in the care of your patient.
== END 2019-04-23 22:14 | disposition home or self-care (01) ==
LOC: VM.ED 18:44
DX: N39.0 Urinary tract infection, site not specified (principal); K56.7 Ileus, unspecified; L98.499 Non-pressure chronic ulcer of skin of other sites with unspecified severity; Z88.0 Allergy status to penicillin; Z88.8 Allergy status to other drugs, medicaments and biological substances; Z79.899 Other long term (current) drug therapy
CPT/HCPCS: 74177; 80053; 80305; 81001; 82150; 83605; 84484; 85025; 87086; 96361; 96374; 96375; 99284; A9270; J0696; J1170; J1200; J1885; J2405; J2765; J7030; Q9967; 36415